=== PATIENT | male | born 1990 | race African-American/Black ===

== ENCOUNTER 2022-07-18 16:58 | Emergency (ER) | payer MEDICAID, OTHER ==
[~2022-07-18] VITALS: Ht 170.2 cm; Wt 90.7 kg
[2022-07-18 17:01] VITALS: BP 150/90
--- NOTE | 2022-07-18 17:04 | NUR ---
BIBA FROM HOME C/O DIFFICULTY BREATHING ONSET YESTERDAY. PT STATES TAKING INH AT HOME WITH NO RELIEF. TEMP 101.4 AT TRIAGE. PT GIVEN ALBUTEROL 10MG HHN EN ROUTE VIA EMS. VSS, AAO4, AMBULATORY. IV ESTABLISHED BY EMS TO LEFT AC WITH 20G. PMH: ASTHMA NKA
[2022-07-18] MEDS ORDERED: ALBUTEROL SULFATE/IPRATROPIU 3 ML SOL IH ONE ×4 (17:05→17:10)
[2022-07-18] MEDS ORDERED: NACL 0.9% 1,000 ML IV ONE ×2 (17:05→18:20)
[2022-07-18] MEDS ORDERED: methylPREDNISolone SS 125 MG in WATER STERILE 2 ML IV ONE (17:05)
[2022-07-18] MEDS ORDERED: ACETAMINOPHEN 325 MG TAB PO ONE (17:05)
[2022-07-18] MEDS ORDERED: methylPREDNISolone SS 125 MG/2 ML VIAL IVP SCH (17:10)
--- NOTE | 2022-07-18 17:10 | NUR ---
COVID AND FLU SWAB COLLECTED AND SENT TO LAB
--- NOTE | 2022-07-18 17:15 | NUR ---
XR AT BEDSIDE
--- NOTE | 2022-07-18 17:20 | NUR ---
RT AT BEDSIDE FOR BR TX
[2022-07-18 17:35] LABS: BASOPHILS % (AUTO) 0.3 % (0.0-2.0); EOSINOPHILS % (AUTO) 0.1 % (0.0-4.0); HEMATOCRIT 46.7 % (36-52); HEMOGLOBIN 15.8 g/dL (12.0-18.0); LYMPHOCYTES # (AUTO) 3.1 K/uL (2.0-11.5); LYMPHOCYTES % (AUTO) 30.3 % (20.5-51.1); MEAN CORPUSCULAR HEMOGLOBIN 31 pg (27-31); MEAN CORPUSCULAR HGB CONC 34 g/dL (33-37); MEAN CORPUSCULAR VOLUME 93.1 fL (80-94); MONOCYTES % (AUTO) 9.5 % (1.7-9.3); NEUTROPHILS % (AUTO) 59.8 % (42.2-75.2); PLATELET COUNT (AUTO) 186 K/uL (140-450); RED BLOOD CELL COUNT(AUTO) 5.01 MIL/uL (4.20-6.10); RED CELL DISTRIBUTION WIDTH 13.4 % (11.6-13.7); WHITE BLOOD COUNT (AUTO) 10.1 K/uL (4.8-10.8)
[2022-07-18 17:51] LABS: ALBUMIN 3.7 g/dL (3.4-5.0); ANION GAP 15.5 (8-16); CARBON DIOXIDE 22.7 mmol/L (21-32); CREATININE 1.4 mg/dL (0.6-1.3); POTASSIUM 3.2 mmol/L (3.5-5.1); TOTAL BILIRUBIN 0.5 mg/dL (0.0-1.0)
--- NOTE | 2022-07-18 19:13 | NUR ---
GAVE REPORT TO SELWYN MCDONNELL
--- NOTE | 2022-07-18 19:23 | NUR ---
PATIENT SITTING IN BED. DENIES PAIN. 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 ALL NEEDS MET
--- NOTE | 2022-07-18 20:29 | NUR ---
PATIETN SITTING IN BED, STATED THAT HE IS BREATHING ALOT BETTER AND FEELS GOOD. DENIES PAIN. PATIENT AAOX4. CALL LIGHT IN REACH. ALL NEEDS MET
[2022-07-18] MEDS ORDERED: ALBU0.0912 IH (20:38)
[2022-07-18] MEDS ORDERED: FLUT1DSK IH (20:38)
[2022-07-18] MEDS ORDERED: PRED20TA5 PO (20:39)
[2022-07-18 21:15] VITALS: BP 103/68
--- NOTE | 2022-07-18 21:15 | NUR ---
Patient discharged with v/s stable. Written and verbal after care instructions given and explained. Patient alert, oriented and verbalized understanding of instructions. Ambulatory with steady gait. All questions addressed prior to discharge. ID band removed. Patient advised to follow up with PMD. Rx of ALBUTEROL, ADVAIR, DELTASONE given. Patient educated on indication of medication including possible reaction and side effects. Opportunity to ask questions provided and answered.
== END 2022-07-18 21:20 | disposition home or self-care (01) ==
LOC: MED 16:58
DX: J45.901 Unspecified asthma with (acute) exacerbation (principal); Z20.822 Contact with and (suspected) exposure to COVID-19; J11.1 Influenza due to unidentified influenza virus with other respiratory manifestations; Z79.899 Other long term (current) drug therapy
CPT/HCPCS: 36415; 71045; 80053; 85025; 87426; 87804; 94640; 96361; 96374; 99284; J2930; J7030; Q0092